=== PATIENT | female | born 1950 | race Hispanic/Latino ===

== ENCOUNTER → 2021-05-01 | Day surgery (SDC) | payer MEDICARE, BC ==
[~2021-05-01] MED LIST: EVISTA60 MG PO; OR PHACO EYE KIT ONE; PREOP PHACO EYE KIT ONE; VITAMIN B-121000 MCG IJ; VITAMIN D3250 MC1
[2021-05-01 10:45] VITALS: BP 126/88
== END | disposition home or self-care (01) ==
LOC: OR 08:10 → EDBD 16:30
PROVIDERS: ATTEND Ophthalmology
DX: H25.042 Posterior subcapsular polar age-related cataract, left eye (principal); H25.12 Age-related nuclear cataract, left eye; M85.80 Other specified disorders of bone density and structure, unspecified site; K21.9 Gastro-esophageal reflux disease without esophagitis; E55.9 Vitamin D deficiency, unspecified; E53.8 Deficiency of other specified B group vitamins; Z01.812 Encounter for preprocedural laboratory examination; Z20.822 Contact with and (suspected) exposure to COVID-19
CPT/HCPCS: 66982; U0002; V2632

== ENCOUNTER → 2021-05-15 | Day surgery (SDC) | payer MEDICARE, BC ==
[2021-05-15 12:40] VITALS: BP 111/73
== END | disposition home or self-care (01) ==
LOC: OR 10:00
PROVIDERS: ATTEND Ophthalmology
DX: H25.11 Age-related nuclear cataract, right eye (principal); M85.80 Other specified disorders of bone density and structure, unspecified site; E55.9 Vitamin D deficiency, unspecified; E53.8 Deficiency of other specified B group vitamins; Z01.812 Encounter for preprocedural laboratory examination; Z20.822 Contact with and (suspected) exposure to COVID-19
CPT/HCPCS: 66984; U0002; V2632